=== PATIENT | female | born 1990 | race Caucasian/White ===

== ENCOUNTER 2019-03-13 13:12 | Emergency (ER) | payer BC ==
[~2019-03-13] VITALS: Ht 149.9 cm; Wt 44.5 kg
--- NOTE | 2019-03-13 14:42 | PHYS DOC ---
Adult General Chief Complaint Chief Complaint: ANXIETY/PANIC ATTACK [facility] HPI 29-year-old female presents with generalized anxiety panic attacks. The patient has been seen by her primary physician twice this week as well as the emergency room once. She was placed on hydroxyzine, Paxil, and then Xanax. She presents today because she is still feeling anxious, but it is better. She is concerned that she gets nauseated anytime she tries to eat and sometimes when she drinks even water. This of course makes her anxiety worse. Doctor did not order any labs or testing. She just wants to make sure there is nothing else wrong with her. She cannot be as she has had her tubes tied in her full. She was removed. She has had difficulty with constipation for the last several months. She denies fever or chills. Review of Systems Review of Systems Constitutional: Anxious. Denies fever or chills [] Eyes: Denies change in visual acuity, redness, or eye pain [] HENT: Denies nasal congestion or sore throat [] Respiratory: Denies cough or shortness of breath [] Cardiovascular: No additional information not addressed in HPI [] GI: Nausea, constipation. Denies abdominal pain, vomiting, bloody stools or diarrhea [] : Denies dysuria or hematuria [] Musculoskeletal: Denies back pain or joint pain [] Integument: Denies rash or skin lesions [] Neurologic: Denies headache, focal weakness or sensory changes [] Endocrine: Denies polyuria or polydipsia [] All other systems were reviewed and found to be within normal limits, except as documented in this note. Physical Exam Physical Exam Constitutional: Well developed, well nourished, no acute distress, non-toxic appearance. [] HENT: Normocephalic, atraumatic, bilateral external ears normal, oropharynx moist, no oral exudates, nose normal. [] Eyes: PERRLA, EOMI, conjunctiva normal, no discharge. [] Neck: Normal range of motion, no tenderness, supple, no stridor. [] Cardiovascular:Heart rate regular rhythm, no murmur [] Lungs & Thorax: Bilateral breath sounds clear to auscultation [] Abdomen: Bowel sounds normal, soft, no tenderness, no masses, no pulsatile masses. [] Skin: Warm, dry, no erythema, no rash. [] Back: No tenderness, no CVA tenderness. [] Extremities: No tenderness, no cyanosis, no clubbing, ROM intact, no edema. [] Neurologic: Alert and oriented X 3, normal motor function, normal sensory function, no focal deficits noted. [] Psychologic: Affect normal, judgement normal, mood anxious. [] EKG EKG [] Radiology/Procedures Radiology/Procedures [] Impressions: KUB 03/13/2019 2:38 PM INDICATION: Constipation COMPARISON: None available. TECHNIQUE: Single supine view the abdomen is provided. FINDINGS/ IMPRESSION: 1. Nonobstructive bowel gas pattern. Small volume fecal contents noted within the rectosigmoid colon 2. Supine technique limits evaluation for free intraperitoneal air. No pneumatosis coli. No soft tissue abnormalities visualized. 3. No suspicious osseous abnormality. Electronically signed by: Jza Soriano MD (03/13/2019 3:00 PM) [id number] DICTATED AND SIGNED BY: JAZ SORIANO MD DATE: 03/13/19 1500 CC: YAMIL CRUZ DO; YANI FLYNN DO ~ Course & Med Decision Making Course & Med Decision Making Pertinent Labs and Imaging studies reviewed. (See chart for details) The patient's x-rays negative for acute findings. She is not appear to have heavy stool burden. The patient's labs are unremarkable. I believe most of her symptoms are related to getting used to her new anxiety medications as well as I do not see any evidence of significant medical issues. We'll discharge the patient was Zofran for her nausea. She is reassured by these results. She is stable for discharge at this time. [] Dragon Disclaimer Dragon Disclaimer This electronic medical record was generated, in whole or in part, using a voice recognition dictation system. Departure Departure: Impression: Primary Impression: Generalized anxiety disorder Additional Impression: Nausea Disposition: 01 HOME, SELF-CARE Condition: STABLE Referrals: YANI FLYNN DO (PCP) Patient Instructions: Anxiety and Panic Attacks, [id number] Scripts Ondansetron (ONDANSETRON ODT) 4 Mg Tab.rapdis 1 TAB PO PRN Q6-8HRS PRN for VOMITING, #16 TAB Prov: YAMIL CRUZ DO 03/13/19 Problem Qualifiers YAMIL CRUZ DO Mar 13, 2019 14:42
[2019-03-13] MEDS ORDERED: IV NORMAL SALINE 1,000ML 1,000 ML IV ONE (14:45)
--- NOTE | 2019-03-13 15:02 | RAD ---
KUB 03/13/2019 2:38 PM INDICATION: Constipation COMPARISON: None available. TECHNIQUE: Single supine view the abdomen is provided. FINDINGS/ IMPRESSION: 1. Nonobstructive bowel gas pattern. Small volume fecal contents noted within the rectosigmoid colon 2. Supine technique limits evaluation for free intraperitoneal air. No pneumatosis coli. No soft tissue abnormalities visualized. 3. No suspicious osseous abnormality. Electronically signed by: Lo Soriano MD (03/13/2019 3:00 PM) [id number]
[2019-03-13 16:43] LABS: BASO % 0 % (0-3); EOS % 0 % (0-3); HEMATOCRIT 43.8 % (36.0-47.0); HEMOGLOBIN 14.9 g/dL (12.0-15.5); LYMPH # 2.4 x10^3/uL (1.0-4.8); LYMPH % 21 % (24-48); MEAN CORPUSCULAR HEMOGLOBIN 29 pg (25-35); MEAN CORPUSCULAR HGB CONC 34 g/dL (31-37); MEAN CORPUSCULAR VOLUME 86 fL (79-100); MONO # 0.5 x10^3/uL (0.0-1.1); MONO % 5 % (0-9); NEUT # 8.4 x10^3uL (1.8-7.7); NEUT % 74 % (31-73); PLATELET COUNT 319 x10^3/uL (140-400); RED BLOOD COUNT 5.09 x10^6/uL (3.50-5.40); RED CELL DISTRIBUTION WIDTH 12.6 % (11.5-14.5); WHITE BLOOD COUNT 11.4 x10^3/uL (4.0-11.0)
[2019-03-13 16:44] LABS: CALCIUM 9.4 mg/dL (8.5-10.1); CREATININE 0.6 mg/dL (0.6-1.0); GFR 117.4; POTASSIUM 3.9 mmol/L (3.5-5.1)
[2019-03-13 16:45] VITALS: BP 119/62
[2019-03-13 16:53] LABS: ALBUMIN 4.2 g/dL (3.4-5.0); ALBUMIN/GLOBULIN RATIO 1.3 (1.0-1.7); TOTAL BILIRUBIN 1.6 mg/dL (0.2-1.0); TOTAL PROTEIN 7.4 g/dL (6.4-8.2)
[2019-03-13] MEDS ORDERED: ONDANSETRON ODT 4 MG TAB.RAPDIS ONE (17:14)
[2019-03-13] MEDS ORDERED: ONDANSETRON ODT 4 MG TAB.RAPDIS PO ONE (17:15)
[2019-03-13 17:39] LABS: CLARITY,URINE HAZY; COLOR,URINE AMBER
[2019-03-13 17:40] LABS: BACTERIA,URINE FEW /HPF (0-FEW); BILIRUBIN,URINE NEG (NEG); GLUCOSE,URINE NEG (NEG); NITRITE,URINE NEG (NEG); SQUAMOUS EPITHELIAL CELL,UR FEW /LPF; WBC,URINE OCC /HPF (0-4)
[2019-03-13] MEDS ORDERED: ONDA4TAB12 PO (17:40)
== END 2019-03-13 17:50 | disposition home or self-care (01) ==
LOC: ER 13:12
DX: F41.1 Generalized anxiety disorder (principal); R11.0 Nausea; K59.00 Constipation, unspecified
CPT/HCPCS: 36415; 74018; 80053; 81001; 85025; 99285; Q0162